=== PATIENT | female | born 1970 | race Caucasian/White ===

== ENCOUNTER 2021-03-30 08:14 | Inpatient (IN) | payer BC, MEDICARE, OTHER ==
[~2021-03-30] VITALS: Ht 165.1 cm; Wt 60.0 kg
[2021-03-30] MEDS ORDERED: ASPIRIN EC81 MG PO (11:08)
[2021-03-30] MEDS ORDERED: AMLODIPINE BESY10 MG PO (11:08)
[2021-03-30] MEDS ORDERED: SYMBICORT 160-1 INHA INH (11:09)
[2021-03-30] MEDS ORDERED: PROTONIX 40 MG40 M1 PO (11:10)
[2021-03-30] MEDS ORDERED: CARVEDILOL25 MG PO (11:10)
[2021-03-30] MEDS ORDERED: MISOPROSTOL100 MCG PO (11:10)
[2021-03-30] MEDS ORDERED: HYDRALAZINE HCL25 MG PO (11:10)
[2021-03-30] MEDS ORDERED: TRAZODONE HCL50 MG PO (11:11)
[2021-03-30] MEDS ORDERED: HUMALOG100 UNIT/1 SQ (11:12)
[2021-03-30] MEDS ORDERED: LANTUS SOL100 UNIT/1 SQ (11:12)
[2021-03-30] MEDS ORDERED: CALCIUM ACETAT667 M1 PO (11:13)
[2021-03-30] MEDS ORDERED: HYDROCODON-ACE1 EAC2 PO (11:14)
[2021-03-30 11:37] LABS: HEMOGLOBIN 9.7 gm/dl (12.3-15.3); RED BLOOD COUNT 3.8 M/UL (4.00-5.10); WHITE BLOOD COUNT 12.3 K/UL (4.5-11.0)
[2021-03-31 04:42] LABS: HEMOGLOBIN 9.3 gm/dl (12.3-15.3); RED BLOOD COUNT 3.7 M/UL (4.00-5.10); WHITE BLOOD COUNT 10.7 K/UL (4.5-11.0)
[2021-04-02 03:35] LABS: ADENOVIRUS F 40/41 Not Detected (Negative); ASTROVIRUS Not Detected (Negative); CAMPYLOBACTER Not Detected (Negative); CLOSTRIDIUM DIFFICILE TOX A/B Not Detected (Negative); CRYPTOSPORIDIUM Not Detected (Negative); E.COLI 0157 Not Detected (Negative); ENTAMOEBA HISTOLYTICA Not Detected (Negative); ENTEROAGGREGATIVE E.COLI (EAEC Not Detected (Negative); ENTEROPATHOGENIC E.COLI (EPEC) Not Detected (Negative); ENTEROTOXIGENIC E.COLI (ETEC) Not Detected (Negative); GIARDIA LAMBLIA Not Detected (Negative); NOROVIRUS GI/GII Not Detected (Negative); PLESIOMONAS SHIGELLOIDES Not Detected (Negative); ROTOVIRUS A Not Detected (Negative); SALMONELLA Not Detected (Negative); SAPOVIRUS Not Detected (Negative); SHIG/ENTEROINVAS.ECOLI (EIEC) Not Detected (Negative); SHIGA-LIK TOX.PRO.E.COLI (STEC Not Detected (Negative); VIBRIO Not Detected (Negative); VIBRIO CHOLERAE Not Detected (Negative); YERSINIA ENTEROCOLITICA Not Detected (Negative)
[2021-04-04 03:38] LABS: HEMOGLOBIN 9.5 gm/dl (12.3-15.3); RED BLOOD COUNT 3.76 M/UL (4.00-5.10); WHITE BLOOD COUNT 5.9 K/UL (4.5-11.0)
--- NOTE | 2021-04-04 05:52 | NUR ---
NOTIFIED FAMILY OF SATS DROPPING AND PATIENT DECLING. FAMILY AWARE.
--- NOTE | 2021-04-04 07:28 | NUR ---
CALLED ER DOC TO COME INTUBATE PATIENT. ONCE HE GOT ON THE FLOOR, PATIENT REFUSED TO BE INTUBATED. VERIFIED OREINTATION STATUS AND SHE ANSWERED ALL QUESTIONS CORRECTLY. MADE PATIENT AWARE THAT WITHOUT INTUBATION HER STATUS COULD DECLINE FURTHER AND SHE COULD POSSIBLY . PT AWARE AND STILL REFUSED TO BE INTUBATED.
--- NOTE | 2021-04-04 07:30 | NUR ---
CALLED FAMILY REGARDING PATIENT DECLINE AND PATIENT REFUSAL OF INTUBATION. FAMILY AWARE AND GOT APPROVED BY [employer] DRIVER TO COME TO THE HOSPTIAL TO VISIT AND TALK ABOUT CODE STATUS.
--- NOTE | 2021-04-04 17:30 | NUR ---
CALLED MD DAVILA. PATIENT UNABLE TO TAKE PO POTASSIUM ORDER PER MD KILGORE. OK PER MD DAVILA TO CHANGE POTASSIUM TO IV
[2021-04-07 02:38] LABS: HEMOGLOBIN 10.1 gm/dl (12.3-15.3); RED BLOOD COUNT 3.92 M/UL (4.00-5.10)
[2021-04-07 02:40] LABS: WHITE BLOOD COUNT 8.9 K/UL (4.5-11.0)
[2021-04-08 10:49] LABS: RED BLOOD COUNT 3.87 M/UL (4.00-5.10); WHITE BLOOD COUNT 10.8 K/UL (4.5-11.0)
[2021-04-09 09:50] LABS: HEMOGLOBIN 9.6 gm/dl (12.3-15.3); RED BLOOD COUNT 3.74 M/UL (4.00-5.10); WHITE BLOOD COUNT 11.8 K/UL (4.5-11.0)
--- NOTE | 2021-04-09 23:24 | NUR ---
CALLED PTS HENRIETTA AND UPDATED HIM ABOUT PTS O2 SAT DROPPING TO 78% ON 100% AIRVO AND NON REBREATHER MASK. CALLED DR CHURCHILL AND ORDERS FOR BIPAP PLACED.
--- NOTE | 2021-04-09 23:27 | NUR ---
PT REFUSING TO PUT BIPAP MASK ON WITH MULTIPLE STAFF EDUCATING HER ABOUT OXYGEN AND NEED FOR IT. PT SCREAMING, " NO MORE" WHEN STAFF ATTEMPTING TO PUT ON MASK. NOTIFIED HER HENRIETTA.
--- NOTE | 2021-04-09 23:32 | NUR ---
FERNANDO AQUINO NOTIFIED THAT PTS HEALTH IS DECLINING AND WOULD LIKE TO COME STAY WITH HER. STATES, " ITS OKAY FOR HIM TO COME, BUT MAKE SURE HE IS WEARING HIS PPE."
--- NOTE | 2021-04-10 00:22 | NUR ---
PTS AT BEDSIDE SHE IS AGREEABLE TO WEAR BIPAP NOW. BIPAP PLACED ON PT WITH 100% O2. 02 SAT 85%
[2021-04-10 04:14] LABS: HEMOGLOBIN 11.4 gm/dl (12.3-15.3)
[2021-04-10 04:19] LABS: RED BLOOD COUNT 4.16 M/UL (4.00-5.10); WHITE BLOOD COUNT 20.3 K/UL (4.5-11.0)
[2021-04-11 05:06] LABS: HEMOGLOBIN 9.9 gm/dl (12.3-15.3)
[2021-04-11 05:07] LABS: RED BLOOD COUNT 3.14 M/UL (4.00-5.10); WHITE BLOOD COUNT 12.5 K/UL (4.5-11.0)
--- NOTE | 2021-04-13 11:00 | NUR ---
PATIENT REQUESTING PATIENT GET A GTUBE PLACED. INFORMED DR DAVILA OF THIS AND SHE STATES THE PATIENT ISNT STABLE ENOUGH FOR ANY PROCEDURE RIGHT NOW
--- NOTE | 2021-04-13 12:31 | NUR ---
PATIENT RETURNS TO FLOOR PER TRANSPORT STAFF. PATIENT DID NOT TOLERATE DIALYSIS, 0 FLUID REMOVED. DIALYISIS NURSE JOHNSON AND INFORMED DR KILGORE.
--- NOTE | 2021-04-14 15:12 | NUR ---
DOBHOFF PLACED TO LEFT NARE. PATIENT TOLERATED WELL. ABD XRAY OBTAINED TO CONFIRM PLACEMENT. TUBE IN PROPER PLACEMENT ACCORDING TO XRAY. MEDICATION CRUSHED AND FLUSHED THROUGH TUBE. DIETARY CONSULT TO RECOMMEND TUBE FEED FORMULA AND RATE.
--- NOTE | 2021-04-14 15:25 | NUR ---
CALLED DIETARY TO INFORM THAT MD KILGORE WANTS PATIENT TUBE FEED NOT TO BE LOW IN POTASSIUM
[2021-04-15 03:29] LABS: HEMOGLOBIN 8.8 gm/dl (12.3-15.3); WHITE BLOOD COUNT 10.1 K/UL (4.5-11.0)
--- NOTE | 2021-04-15 03:55 | NUR ---
ON ARRIVAL TO THE SHIFT, PT DOBHOFF NOTED TO BE CLOGGED, UNABLE TO FLUSH. TF NOT INFUSING. MULTIPLE ATTEMPTS MADE TO UNCLOG DOBHOFF. DOBHOFF REMOVED. ATTEMPTED TO RE-PLACE WITH NEW DOBHOFF, DOBHOFF WOULD NOT ADVANCE PAST LOWER ESOPHAGEAL SPHINCTER X2 NURSE ATTEMPT. PT DID NOT TOLERATE PROCEDURE WELL PT DOES NOT FOLLOW COMMANDS WELL. DOBHOFF REMOVED AND HOLDING TF AT THIS TIME. WILL NOTIFY PROVIDER.
--- NOTE | 2021-04-15 07:13 | NUR ---
PATIENT O2 SAT AT 78% ON 9LITER HIGH FLOW. CALL RESPIRATORY TO ADJUST AIRVO. AIRVO HOOKED UP AND PLACED ON PATIENT. O2 SAT AT 92%. DOBHOFF REMOVED PER TOBACCO WETTER. CANNOT BE RE-INSERTED WITH AIRVO IN PLACE
--- NOTE | 2021-04-15 13:13 | NUR ---
PATIENT TRANSPORTED TO [facility] PER TRANSPORT STAFF.
--- NOTE | 2021-04-15 15:26 | NUR ---
CONSULT CALLED TO KRISTY BY DR DAVILA, FOR BACTERIAL PNEUMONIA, DECLINING RESPIRATORY STATUS AND COVID
--- NOTE | 2021-04-15 16:22 | NUR ---
PER DR JAME ERAZO TO CT FOR PE AFTER DIALYSIS TODAY
--- NOTE | 2021-04-15 16:30 | NUR ---
PER DR KILGORE OK TO DO CT AFTER DIALYIS TODAY.
--- NOTE | 2021-04-15 17:37 | NUR ---
PATIENT RETURNED TO FLOOR PER TRANSPORT FROM DIALYSIS. DIALYSIS NURSE STATED HE COULD ONLY GET ONE LTR OFF TODAY. TPN STARTED IN THE [facility] PAC PER PHARMACY RECOMMENDATIONS. [place]
[2021-04-17 02:44] LABS: HEMOGLOBIN 10.2 gm/dl (12.3-15.3)
[2021-04-17 02:51] LABS: RED BLOOD COUNT 3.7 M/UL (4.00-5.10)
--- NOTE | 2021-04-17 04:01 | NUR ---
DR. KRISTY NUÑEZ CAME TO BEDSIDE AT ON 04/16/21 AT 2000. NOTIFIED THAT PATIENT HAS SPELLS WHERE HER OXYGEN LEVELS WILL DROP TO 70'S. MD ORDERED AN ABG. MD WAS NOTIFIED OF ABG RESULTS. MD CAME TO BEDSIDE AT 2029 TO DO AN ULTRASOUND GUIDED ABG. WHILE THE PATIENT WAS GETTING ABG DRAWN HER OXYGEN DROPPED INTO THE LOW 80'S. WAS AWARE. ON 04/17/[address] KRISTY NUÑEZ CALLED TO CHECK ON THE PATIENT'S O2. THE PATIENT'S O2 WAS IN THE LOW 80'S MAXED OUT ON AIRVO. DR. WAGNER STATED TO USE THE BIPAP/CPAP IF NEEDED AND GAVE RT THE NEW SETTINGS.
--- NOTE | 2021-04-17 16:28 | NUR ---
pts Matt notified pt condition change and moving to ICU room 2120 with all questions asked and answered
--- NOTE | 2021-04-17 18:18 | NUR ---
SPOKE WITH PT'S HENRIETTA RE: COMFORT CARE AND INFORMED PT NOW RECIEVING MEDS FOR COMFORT AND NOW ON NC OF 2 LMP. VOICED UNDERSTANDING
== END 2021-04-18 22:55 | disposition expired | DRG 871 ==
LOC: CCU 09:24 → PROG CARE 09:24
PROVIDERS: Internal Medicine; Internal Medicine Critical Care Medicine; Internal Medicine Nephrology; Physician Assistant Medical; ADMIT Internal Medicine
PROC: 5A0955A Assistance with Respiratory Ventilation, Greater than 96 Consecutive Hours, High Flow/Velocity Cannula (ICD-10-PCS; 2021-03-30)
PROC: 5A1D70Z Performance of Urinary Filtration, Intermittent, Less than 6 Hours Per Day (ICD-10-PCS; 2021-03-31)
PROC: 8E0ZXY6 Isolation (ICD-10-PCS; 2021-04-01)
PROC: 5A1D70Z Performance of Urinary Filtration, Intermittent, Less than 6 Hours Per Day (ICD-10-PCS; 2021-04-02)
PROC: 5A09557 Assistance with Respiratory Ventilation, Greater than 96 Consecutive Hours, Continuous Positive Airway Pressure (ICD-10-PCS; 2021-04-04)
PROC: 5A1D70Z Performance of Urinary Filtration, Intermittent, Less than 6 Hours Per Day (ICD-10-PCS; 2021-04-05)
PROC: 5A1D70Z Performance of Urinary Filtration, Intermittent, Less than 6 Hours Per Day (ICD-10-PCS; 2021-04-09)
PROC: 5A1D70Z Performance of Urinary Filtration, Intermittent, Less than 6 Hours Per Day (ICD-10-PCS; 2021-04-11)
PROC: 5A1D70Z Performance of Urinary Filtration, Intermittent, Less than 6 Hours Per Day (ICD-10-PCS; 2021-04-13)
PROC: 3E0336Z Introduction of Nutritional Substance into Peripheral Vein, Percutaneous Approach (ICD-10-PCS; principal; 2021-04-14)
PROC: B24BZZZ Ultrasonography of Heart with Aorta (ICD-10-PCS; 2021-04-14)
PROC: 5A1D70Z Performance of Urinary Filtration, Intermittent, Less than 6 Hours Per Day (ICD-10-PCS; 2021-04-16)
PROC: 5A1D70Z Performance of Urinary Filtration, Intermittent, Less than 6 Hours Per Day (ICD-10-PCS; 2021-04-17)
PROC: 0T9B70Z Drainage of Bladder with Drainage Device, Via Natural or Artificial Opening (ICD-10-PCS; 2021-04-17)
DX: A41.02 Sepsis due to Methicillin resistant Staphylococcus aureus (principal); R65.21 Severe sepsis with septic shock; N18.6 End stage renal disease; U07.1 COVID-19; J12.82 Pneumonia due to coronavirus disease 2019; I26.99 Other pulmonary embolism without acute cor pulmonale; J15.212 Pneumonia due to Methicillin resistant Staphylococcus aureus; G93.41 Metabolic encephalopathy; E43 Unspecified severe protein-calorie malnutrition; J96.21 Acute and chronic respiratory failure with hypoxia; I12.0 Hypertensive chronic kidney disease with stage 5 chronic kidney disease or end stage renal disease; J98.11 Atelectasis; R18.8 Other ascites; Q61.3 Polycystic kidney, unspecified; N25.81 Secondary hyperparathyroidism of renal origin; I47.1 Supraventricular tachycardia; T81.82XA Emphysema (subcutaneous) resulting from a procedure, initial encounter; Z51.5 Encounter for palliative care; Z66 Do not resuscitate; R91.8 Other nonspecific abnormal finding of lung field; R00.1 Bradycardia, unspecified; E87.6 Hypokalemia; D69.6 Thrombocytopenia, unspecified; T38.0X5A Adverse effect of glucocorticoids and synthetic analogues, initial encounter; I48.91 Unspecified atrial fibrillation; J98.2 Interstitial emphysema; L89.896 Pressure-induced deep tissue damage of other site; K74.60 Unspecified cirrhosis of liver; E11.22 Type 2 diabetes mellitus with diabetic chronic kidney disease; E87.70 Fluid overload, unspecified; E78.5 Hyperlipidemia, unspecified; Z99.2 Dependence on renal dialysis; Z86.73 Personal history of transient ischemic attack (TIA), and cerebral infarction without residual deficits; Z79.82 Long term (current) use of aspirin; Z79.4 Long term (current) use of insulin; Z83.3 Family history of diabetes mellitus; Z88.8 Allergy status to other drugs, medicaments and biological substances; Z79.899 Other long term (current) drug therapy; Z68.22 Body mass index [BMI] 22.0-22.9, adult; D53.9 Nutritional anemia, unspecified
CPT/HCPCS: ECHO; 36415; 36600; 71045; 74018; 80048; 80053; 80202; 82550; 82553; 82803; 82962; 83036; 83605; 83735; 83880; 84100; 84132; 84484; 85007; 85025; 85027; 85379; 86140; 87040; 87507; 90935; 90937; 93005; 93306; 94640; 94660; 94664; 94760; A6212; J0360; J1100; J1644; J1650; J2060; J2270; J2370; J2405; J2543; J3370; J3475; J3480; J7030; J7040; J7070; P9047